=== PATIENT | female | born 1995 | race Caucasian/White ===

== ENCOUNTER 2019-11-30 07:46 | Outpatient (CLI) | payer BC ==
--- NOTE | 2019-12-01 13:20 | Ultrasound Report ---
Reason: DYSFUNCTIONAL UTERINE BLEEDING Procedure Date: 11/30/2019 Accession Number: [id number] / [id number] Procedure: US - Pelvic Complete CPT Code: Final Report FULL RESULT: EXAM: PELVIC ULTRASOUND EXAM DATE: 11/30/2019 09:01 AM. CLINICAL HISTORY: Dysfunctional uterine bleeding. COMPARISON: None. TECHNIQUE: Realtime transabdominal pelvic scan performed to identify the uterus and adnexa and as an overview of other pelvic structures, followed by transvaginal scan to provide greater detail of the uterus and adnexa, with static image documentation. FINDINGS: Uterus: 8.4 x 3.3 x 6.0 cm, volume 87 cc. Anteverted position. Normal overall size and echotexture. Masses: None. Endometrium: Septated uterus. Right moiety endometrial stripe 3 mm, left moiety endometrial stripe 2 mm. No free fluid. Cervix: Unremarkable. Right Ovary: 2.9 x 1.5 x 2.6 cm, volume 6 cc. Normal echotexture and blood flow. Left Ovary: 4.3 x 1.5 x 2.0 cm, volume 7 cc. Normal echotexture and blood flow. Free Fluid: Small amount of free fluid in the posterior cul-de-sac. Other: None. IMPRESSION: Septated uterus. No free fluid within either endometrial canal moiety. No uterine fibroids identified. RADIA
== END 2019-11-30 07:47 | disposition home or self-care (01) ==
LOC: DI 07:46
PROVIDERS: ATTEND Advanced Practice Midwife
DX: N93.8 Other specified abnormal uterine and vaginal bleeding (principal); Q51.20 Other doubling of uterus, unspecified
CPT/HCPCS: 76856

== ENCOUNTER 2021-03-21 08:00 | Outpatient (CLI) | payer BC ==
--- NOTE | 2021-03-21 14:50 | XRAY Report ---
PROCEDURE: Chest 2 View X-Ray INDICATIONS: Chest pain, shortness of breath TECHNIQUE: 2 view(s) of the chest. COMPARISON: None. FINDINGS: Surgical changes and devices: None. Lungs and pleura: No pleural effusions or pneumothorax. Lungs are clear. Mediastinum: Mediastinal contours are normal. Heart size is normal. Bones and chest wall: No suspicious bony abnormalities. Soft tissues appear unremarkable. IMPRESSION: No acute finding. Reviewed by: Edvin Bell MD on 03/21/2021 2:49 PM PDT Approved by: Edvin Bell MD on 03/21/2021 2:49 PM PDT Station ID: [id number]
== END 2021-03-21 23:59 | disposition home or self-care (01) ==
LOC: DI.S 08:00
PROVIDERS: ATTEND Physician Assistant Medical
DX: R06.02 Shortness of breath (principal); R07.9 Chest pain, unspecified

== ENCOUNTER 2022-06-09 08:00 | Outpatient (CLI) | payer BC, OTHER ==
--- NOTE | 2022-06-09 11:59 | XRAY Report ---
PROCEDURE: Wrist 4 View LT INDICATIONS: PAIN IN LEFT WRIST TECHNIQUE: 4 views of the wrist were acquired. COMPARISON: None FINDINGS: Bones: No acute fractures or dislocations. No suspicious bony lesions. Scaphoid view: Intact scaphoid Soft tissues: No suspicious soft tissue calcifications. IMPRESSION: No acute osseous abnormality. If symptoms persist or there is continued clinical concern, further meri luation with MRI or CT may be helpful. Reviewed by: Paxton Pollock MD on 06/09/2022 11:58 AM PDT Approved by: Paxton Pollock MD on 06/09/2022 11:58 AM PDT Station ID: [id number]
== END 2022-06-09 23:59 | disposition home or self-care (01) ==
LOC: DI.S 08:00
PROVIDERS: ATTEND Physician Assistant
DX: M25.532 Pain in left wrist (principal)

== ENCOUNTER 2022-06-17 20:58 | Emergency (ER) | payer BC ==
--- OUTSIDE RECORDS SUMMARY | 2022-06-17 21:08 | EXTERNAL MEDICAL SUMMARY RPT | Continuity of Care Document ---
:1995 Author Organization [facility] Address [address] [place] [address] Phone Care Team Providers Name Role Phone Unavailable Unavailable Unavailable [facility] Unavailable Unavailable Allergies No information. Encounters No information. Functional Status No information. Immunizations No information. Medications date description facility [phone] buspirone Walk[facility] [place] [phone]+0000 escitalopram oxalate Walk-In Clinic [facility] [place] [phone]+0000 buspirone [facility] [phone]+0000 codeine-guaifenesin Walk[facility] [place] [phone]+0000 escitalopram oxalate Walk-In Clinic [facility] [phone]+0000 codeine-guaifenesin [facility] [phone]+0000 albuterol sulfate [facility] [phone]+0000 albuterol sulfate [facility] [phone]+0000 codeine-guaifenesin [facility] [phone]+0000 buspirone [facility] [phone]+0000 escitalopram oxalate Walk[facility]In [facility] [phone]+0000 albuterol sulfate [facility] [phone]+0000 albuterol sulfate [facility] [place] [phone]+0000 escitalopram oxalate Walk[facility]In [facility] [place] [phone]+0000 buspirone [facility] [place] Problems No information. Procedures date description facility +0000 Visit Code Hold [facility] Results/Labs No information. Social History date description facility +0000 Never smoker Walk-[facility] [place] Vital Signs date measurement value units +0000 BMI BMI 18.37 kg/m2 +0000 BP_diastolic BP_diastolic 71 mmHg +0000 BP_systolic BP_systolic 110 mmHg +0000 heart_rate heart_rate 60 /min +0000 height_metric height_metric 165.1 cm +0000 height_standard height_standard 65 in +0000 respiration_rate respiration_rate 14 /min +0000 weight_metric weight_metric 49.9 kg +0000 weight_standard weight_standard 110 lb
[2022-06-17 21:15] VITALS: BP 129/81
[2022-06-17] MEDS ORDERED: ONDANSETRON ODT 4 MG TABLET TL STA (21:23)
[2022-06-17] MEDS ORDERED: ONDANSETRON ODT 4 MG Prepack 2 TL STA (21:23)
[2022-06-17] MEDS ORDERED: IBUPROFEN 600 MG TABLET PO STA (21:23)
[2022-06-17] MEDS ORDERED: BENZONATATE 100 MG CAPSULE PO STA (21:23)
--- NOTE | 2022-06-17 21:25 | ED Physician Documentation ---
PD HPI HEENT - Stated complaint Stated Complaint: COUGH/COLD SYMPTOM - Chief complaint Chief Complaint: Resp - History obtained from History obtained from: Patient - Additional information Additional information: Previously healthy 27-year-old has been sick for about 6 days. It started with a sore throat and also has congestion and cough with emesis starting more recently over the last couple of days not associated with diarrhea or abdominal pain. Multiple sick contacts at home and at work. Review of Systems Constitutional: reports: Fatigue. denies: Fever, Chills Nose: reports: Rhinorrhea / runny nose Throat: reports: Sore throat Respiratory: reports: Cough. denies: Dyspnea PD PAST MEDICAL HISTORY - Present Medications Home Medications: Ambulatory Orders Medication Instructions Recorded Confirmed Benzonatate [Tessalon] 200 mg PO QID PRN #20 cap 06/17/22 Ibuprofen [Motrin] 600 mg PO Q6H PRN #14 tab 06/17/22 Ondansetron Odt [Zofran] 4 mg TL Q6H PRN #10 tablet 06/17/22 - Allergies Allergies/Adverse Reactions: Allergies Allergy/AdvReac Type Severity Reaction Status Date / Time amoxicillin Allergy Rash Verified 06/17/22 21:15 PD ED PE NORMAL - Vitals Vital signs reviewed: Yes - General General: Alert and oriented X 3, No acute distress - HEENT HEENT: PERRL, EOMI, Other (Red tonsillar pillars without exudate) - Neck Neck: Other (Moderate anterior cervical adenopathy.) - Cardiac Cardiac: RRR, No murmur - Respiratory Respiratory: No respiratory distress, Clear bilaterally - Abdomen Abdomen: Soft, Non tender - Back Back: No CVA TTP, No spinal TTP - Derm Derm: Normal color, Warm and dry - Extremities Extremities: No edema, No calf tenderness / cord - Neuro Neuro: Alert and oriented X 3, Normal speech Results - Vitals Vitals: Vital Signs - 24 hr 06/17/22 21:13 Temperature 36.8 C Heart Rate 71 Respiratory 16 Rate Blood Pressure 129/81 H O2 Saturation 97 Oxygen O2 Source Room air PD MEDICAL DECISION MAKING - ED course ED course: 27-year-old woman with viral syndrome marked by cough, sore throat and vomiting with normal vital signs and relatively unremarkable exam save for red tonsillar pillars. She requested COVID testing which is not unreasonable. We will treat symptomatically. Discussed viral nature of her symptoms otherwise. Departure - Departure Disposition: Home, Self Care Clinical Impression: Viral URI Condition: Good Record reviewed to determine appropriate education?: Yes Instructions: ED Viral Syndrome Prescriptions: Ibuprofen [Motrin] 600 mg PO Q6H PRN #14 tab PRN Reason: Pain Benzonatate [Tessalon] 200 mg PO QID PRN #20 cap PRN Reason: Cough Ondansetron Odt [Zofran] 4 mg TL Q6H PRN #10 tablet PRN Reason: Nausea / Vomiting Comments: I sent your prescription electronically to [facility] in [place]. Return for new or worsening symptoms, follow-up with your doctor Wednesday or Wednesday if not improving. You have a Covid test pending. You need to self quarantine until the result is done and negative. Do not leave your house. Do not get near anybody. The results should be done in 48 to 72 hours. We will call with a positive result, the fastest way to get a negative result for confirmation though is to go to the hospital website at [email or web address], click on the my [email or web address] tab and sign up for the patient portal.
== END 2022-06-17 21:45 | disposition home or self-care (01) ==
LOC: ED 20:58
DX: J06.9 Acute upper respiratory infection, unspecified (principal); Z20.822 Contact with and (suspected) exposure to COVID-19
CPT/HCPCS: 87635; 99282; 99283; A9270; Q0162

== ENCOUNTER 2022-06-24 08:00 | Outpatient (CLI) | payer BC ==
--- NOTE | 2022-06-24 09:49 | XRAY Report ---
PROCEDURE: Wrist 4 View LT INDICATIONS: LEFT WRIST TENDINITIS TECHNIQUE: 4 views of the wrist were acquired. COMPARISON: 06/09/2020 FINDINGS: Bones: No displaced fracture. Normal carpal alignment. No high-grade degenerative changes. Soft tissues: No suspicious calcifications. IMPRESSION: No acute radiographic abnormality. Given persistent pain, consider MR for further evaluation. Reviewed by: Gabino Almazan MD on 06/24/2022 9:48 AM PDT Approved by: Gabino Almazan MD on 06/24/2022 9:48 AM PDT Station ID: [id number]
== END 2022-06-24 23:59 | disposition home or self-care (01) ==
LOC: DI.S 08:00
PROVIDERS: ATTEND Physician Assistant Medical
DX: M77.8 Other enthesopathies, not elsewhere classified (principal); M25.532 Pain in left wrist

== ENCOUNTER 2022-07-06 06:55 | Outpatient (CLI) | payer BC ==
[2022-07-06 14:25] LABS: BASOPHILS % (AUTO) 0.5 %; HCT - HEMATOCRIT 41.6 % (37.0-47.0); LYMPHOCYTES # (AUTO) 1.4 10^3/uL (1.5-3.5); MEAN CORPUSCULAR HEMOGLOBIN 29.3 pg (27.0-31.0); MEAN CORPUSCULAR HGB CONC 31.3 g/dL (32.0-36.0); MEAN CORPUSCULAR VOLUME 93.9 fL (81.0-99.0); MEAN PLATELET VOLUME 11.6 fL (7.9-10.8); MONOCYTES # (AUTO) 0.4 10^3/uL (0.0-1.0); MONOCYTES % (AUTO) 8.9 %; NEUTROPHILS # (AUTO) 2.3 10^3/uL (1.5-6.6); NEUTROPHILS % (AUTO) 55.4 %; PLT - PLATELET COUNT 234 10^3/uL (130-450); RED BLOOD COUNT 4.43 10^6/uL (4.20-5.40); RED CELL DISTRIBUTION WIDTH 12.1 % (12.0-15.0); WHITE BLOOD COUNT 4.2 x10^3/uL (4.8-10.8)
[2022-07-06 15:40] LABS: THYROID STIMULATING HORMONE 2.53 uIU/mL (0.34-5.60)
== END 2022-07-06 06:56 | disposition home or self-care (01) ==
LOC: LAB.S 06:55
PROVIDERS: ATTEND Physician Assistant
DX: R53.83 Other fatigue (principal)
CPT/HCPCS: 36415; 84443; 85025

== ENCOUNTER 2022-07-22 08:00 | Outpatient (CLI) | payer BC ==
[2022-07-23 00:59] LABS: INFLUENZA A- RESP PCR PANEL NOT DETECTED; INFLUENZA B - RESP PCR PANEL NOT DETECTED; RSV- RESP PCR PANEL NOT DETECTED; SARS-CoV-2 -RESP PCR PANEL NOT DETECTED
== END 2022-07-22 23:59 | disposition home or self-care (01) ==
LOC: LAB 08:00
PROVIDERS: ATTEND Registered Nurse
DX: J02.9 Acute pharyngitis, unspecified (principal); J34.89 Other specified disorders of nose and nasal sinuses; R05.1 Acute cough; Z20.822 Contact with and (suspected) exposure to COVID-19
CPT/HCPCS: 87637

== ENCOUNTER 2022-08-07 07:00 | Outpatient (CLI) | payer BC | END 2022-08-07 23:59 | disposition home or self-care (01) | LOC: LAB.S 07:00 | PROVIDERS: ATTEND Physician Assistant | DX: M77.9 Enthesopathy, unspecified (principal) | CPT/HCPCS: 36415; 85651 ==

== ENCOUNTER 2022-10-29 16:22 | Outpatient (CLI) | payer BC ==
[2022-10-29 16:51] VITALS: BP 128/72
--- NOTE | 2022-10-29 16:51 | SLEEP CARE CONSULTATION ---
Information from patient questionnaire entered by Stephany Jacob. I have reviewed and concur with the information entered by Stephany Jacob. This document represents the service I personally performed and the decisions made by me, Nat Valdovinos ARNP. History of Present Illness Service Date and Time: 10/29/2022 1622 Reason for Visit: New patient, Previously diagnosed sleep apnea Chief Complaint: reports: Snoring, Excessive daytime sleepiness, Other (nerve pain) Date of Onset: 4+ months Usual bedtime: 10 PM Time it takes to fall asleep: 1/2 hour Snores at night: Yes Observed to quit breathing while asleep: No Number of times waking at night: 2 Reasons for waking at night: reports: Bathroom, Other (unknown reason; coughing attacks since being sick recently). denies: Choking, Snoring, Gasping for air Toss, Turn, or Twitch while sleeping: Yes Recalls having dreams: Yes Usually gets out of bed at: 6-9 AM Feels refreshed in the morning: No Morning headache: No Sleepy or fatigued during the day: Yes Ever fallen asleep while driving: No (does not drive, only has permit) Takes day naps: Yes (daily for at least 2-3 hours) Dreams during day naps: No Prior sleep studies: Yes Year and Where: 08/2018 [facility] Additional HPI information: I had the pleasure of seeing JOSE LYNCH today regarding the possibility of her having a sleep disorder. Her current complaints are snoring and excessive daytime sleepiness. She has been experiencing nerve pain since May 2022 in her hands and legs/feet. He doctor referred her to get her apnea recheck. She has a history diagnosed sleep apnea and was prescribed a CPAP but she has not been using it in about 09/2018. She states she would take the mask off during the night and then she just stopped using it. She has also tried an oral appliance but it hurt her teeth too much to continue. She has had about 5-10 pound gain since her last sleep study. She states her daytime sleepiness is worse, she will come home from work and fall asleep for 3-4 hours. 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 Patient is Single and lives in [place]. Have you smoked in the past 12 months: No Alcohol use: No Caffeine use: Yes Caffeine amount and frequency: 2 cans every day, 24 ounce coffee in morning Family History Family history of sleep disordered breathing: Yes Family Hx Sleep Apnea: Father: Snoring, Sleep apnea - Untreated Allergies and Home Medications Known drug allergies: Yes (amoxicillin) Drug allergies reviewed: Yes Home medication list reviewed: Yes Allergy and home medication list: Medications: Noa ( control) Escitalopram, 20 mg Iron Multivitamin gummies Buspirone 5 mg Meloxicam 15 mg Nexplanon implant in left arm Gabapentin 100 mg 3 times a day Review of Systems Weight gain over past 5 years: 10 Cardiovascular: denies: high blood pressure Gastrointestinal: denies: heartburn Neurological: reports: headaches Psychiatric: reports: anxiety, depression Ear/Nose/Throat: reports: nasal congestion, wisdom teeth removed. denies: tonsillectomy Endocrine: reports: sluggishness Musculoskeletal: reports: joint pain, neck pain, back pain Physical Exam Vital signs obtained and entered by: STEPHANY Christiansen MA Blood Pressure: 128/72 (LEFT ARM) Cuff size: regular Heart Rate: 58 O2 Saturation: 8 Height: 5 ft 5 in Weight: 117 lb 6.4 oz Body Mass Index: 19.5 BMI Classification: Normal Neck circumference: 13.5 Mouth and throat: narrow oropharynx Soft palate: long Hard palate: arched Uvula: normal Uvula visualization: 50% Mallampati Class II Tongue: normal in size Tonsils: small Neck: normal w/o lymphadenopathy or thyromegaly Heart: regular rate and rhythm Lungs: clear bilaterally Impression and Plan 1. Suspected Obstructive Sleep Apnea-Hypopnea Syndrome, as previously diagnosed and as suggested by a history of loud and irregular snoring, unrefreshed sleep, and excessive daytime sleepiness. I recommend proceeding to polysomnography to confirm the diagnosis and to assess severity. I informed the patient of what the sleep studies involve and after some discussion, obtained agreement to proceed. The pathophysiology of obstructive sleep apnea-hypopnea syndrome was discussed with the patient and health risks of cardiovascular and cerebrovascular disease if not treated. Risks of drowsy driving discussed in detail and patient advised to avoid long distance driving and to gizzard puller at the first sign of drowsiness. Patient agreed to plan. * Schedule polysomnography * Avoid long distance driving or driving when feeling sleepy. * Avoid alcohol, sedative and muscle relaxant around bedtime. * Review instructions provided by trained office staff on how to prepare for the sleep study. * Return for follow-up after sleep study completed. Visit Type: In Office Time Spent with Patient (minutes): 22 Provider Statement: I spent 100% of the Face to Face Visit with the patient with greater than 50% spent counseling the patient and coordination of care.
== END 2022-10-29 16:23 | disposition home or self-care (01) ==
LOC: SC 16:22
PROVIDERS: ATTEND Nurse Practitioner Family
DX: G47.33 Obstructive sleep apnea (adult) (pediatric) (principal); F32.A Depression, unspecified
CPT/HCPCS: 99202; 99212

== ENCOUNTER 2022-11-02 11:16 | Outpatient (CLI) | payer BC ==
[2022-11-02 14:51] LABS: ALBUMIN 3.9 g/dL (3.2-5.5); ALBUMIN/GLOBULIN RATIO 1.1 (1.0-2.2); BILIRUBIN,TOTAL 0.4 mg/dL (0.2-1.0); CALCIUM 9.4 mg/dL (8.5-10.3); CREATININE 0.7 mg/dL (0.4-1.0); POTASSIUM 4.1 mmol/L (3.5-5.0); TOTAL PROTEIN 7.3 g/dL (6.7-8.2)
[2022-11-02 17:02] LABS: FOLATE > 49.60 ng/mL (5.90 - >24.8)
[2022-11-02 20:44] LABS: ESTIMATED AVERAGE GLUCOSE 105 mg/dL (70-100); HEMOGLOBIN A1c% 5.3 % (4.27-6.07)
== END 2022-11-02 11:17 | disposition home or self-care (01) ==
LOC: LAB.S 11:16
PROVIDERS: ATTEND Registered Nurse
DX: G62.9 Polyneuropathy, unspecified (principal)
CPT/HCPCS: 36415; 80053; 82607; 82746; 83036; 84207

== ENCOUNTER 2023-01-21 06:58 | Outpatient (CLI) | payer BC ==
[2023-01-21 16:23] LABS: FOLATE > 49.60 ng/mL (5.90 - >24.8)
== END 2023-01-21 06:59 | disposition home or self-care (01) ==
LOC: LAB.S 06:58
PROVIDERS: ATTEND Registered Nurse
DX: E53.8 Deficiency of other specified B group vitamins (principal)
CPT/HCPCS: 36415; 82607; 82746

== ENCOUNTER 2023-02-24 13:52 | Outpatient (CLI) | payer BC ==
--- NOTE | 2023-02-24 18:44 | XRAY Report ---
PROCEDURE: Chest 2 View X-Ray INDICATIONS: SHORTNESS OF BREATH/CHEST PAIN TECHNIQUE: 2 views of the chest were acquired. COMPARISON: None. FINDINGS: Surgical changes and devices: None. Lungs and pleura: No pleural effusions or pneumothorax. Lungs are clear. Mediastinum: Mediastinal contours appear normal. Heart size is normal. Bones and chest wall: No suspicious bony lesions. Overlying soft tissues appear unremarkable. IMPRESSION: No acute cardiopulmonary process. Reviewed by: Tevin Robb MD on 02/24/2023 5:42 PM AKNATHAN Approved by: Tevin Robb MD on 02/24/2023 5:42 PM AKDT Station ID: [id number]
== END 2023-02-24 23:59 | disposition home or self-care (01) ==
LOC: DI.S 13:52
PROVIDERS: ATTEND Physician Assistant
DX: R07.89 Other chest pain (principal); R06.02 Shortness of breath

== ENCOUNTER 2023-03-04 08:00 | Outpatient (CLI) | payer BC | END 2023-03-04 23:59 | disposition home or self-care (01) | LOC: LAB.S 08:00 | PROVIDERS: ATTEND Physician Assistant | DX: R30.0 Dysuria (principal) | CPT/HCPCS: 87086 ==

== ENCOUNTER 2023-04-12 08:00 | Outpatient (CLI) | payer BC | END 2023-04-12 23:59 | disposition home or self-care (01) | LOC: LAB.S 08:00 | PROVIDERS: ATTEND Physician Assistant Medical | DX: R30.0 Dysuria (principal) | CPT/HCPCS: 87086 ==

== ENCOUNTER 2023-04-14 08:00 | Outpatient (CLI) | payer BC | END 2023-04-14 23:59 | disposition home or self-care (01) | LOC: LAB.S 08:00 | PROVIDERS: ATTEND Physician Assistant | DX: R30.0 Dysuria (principal) | CPT/HCPCS: 87086 ==

== ENCOUNTER 2023-05-27 08:00 | Outpatient (CLI) | payer BC ==
[2023-05-27 19:56] LABS: BILIRUBIN,URINE NEGATIVE (NEGATIVE); GLUCOSE, URINE (UA) NEGATIVE (NEGATIVE); KETONES,URINE (UA) NEGATIVE (NEGATIVE); LEUKOCYTE ESTERASE, URINE SMALL (NEGATIVE); NITRITE,URINE NEGATIVE (NEGATIVE); OCCULT BLOOD,URINE NEGATIVE (NEGATIVE); PROTEIN,URINE NEGATIVE (NEGATIVE); UROBILINOGEN,URINE 0.2 (NORMAL) E.U./dL (NORMAL)
[2023-05-27 20:00] LABS: CLARITY,URINE CLEAR (CLEAR)
[2023-05-27 20:08] LABS: BACTERIA,URINE Moderate /HPF (None Seen); RBC,URINE 0-5 /HPF (0-5); SQUAMOUS EPITHELIAL CELL,UR RARE Squamous (<= Few); WBC,URINE 0-3 /HPF (0-5)
== END 2023-05-27 23:59 | disposition home or self-care (01) ==
LOC: LAB 08:00
PROVIDERS: ATTEND Physician Assistant Medical
DX: R30.0 Dysuria (principal)
CPT/HCPCS: 81001; 87086

== ENCOUNTER 2023-05-28 11:33 | Outpatient (CLI) | payer BC ==
[2023-05-28 15:15] LABS: RHEUMATOID FACTOR NEGATIVE (Negative)
[2023-05-28 16:47] LABS: CRP - C-REACTIVE PROTEIN < 0.5 mg/dL (<0.5)
[2023-05-31 17:09] LABS: ANTINUCLEAR ANTIBODIES IFA Negative (.)
== END 2023-05-28 11:34 | disposition home or self-care (01) ==
LOC: LAB.S 11:33
PROVIDERS: ATTEND Physician Assistant Medical
DX: M25.50 Pain in unspecified joint (principal); M79.10 Myalgia, unspecified site; M54.9 Dorsalgia, unspecified
CPT/HCPCS: 36415; 82746; 85651; 86038; 86140; 86430

== ENCOUNTER 2023-06-10 07:37 | Outpatient (CLI) | payer BC | END 2023-06-10 07:38 | disposition home or self-care (01) | LOC: LAB.S 07:37 | PROVIDERS: ATTEND Registered Nurse | DX: E53.8 Deficiency of other specified B group vitamins (principal) | CPT/HCPCS: 36415; 82607; 82746 ==

== ENCOUNTER 2023-08-14 11:04 | Emergency (ER) | payer BC ==
[2023-08-14 11:48] LABS: HCT - HEMATOCRIT 44.7 % (37.0-47.0); HGB - HEMOGLOBIN 14.5 g/dL (12.0-16.0); LYMPHOCYTES # (AUTO) 1.8 10^3/uL (1.5-3.5); LYMPHOCYTES % (AUTO) 27.8 %; MEAN CORPUSCULAR HEMOGLOBIN 28.7 pg (27.0-31.0); MEAN CORPUSCULAR HGB CONC 32.4 g/dL (32.0-36.0); MEAN CORPUSCULAR VOLUME 88.3 fL (81.0-99.0); MEAN PLATELET VOLUME 9.9 fL (7.9-10.8); MONOCYTES # (AUTO) 0.3 10^3/uL (0.0-1.0); MONOCYTES % (AUTO) 5.1 %; NEUTROPHILS # (AUTO) 4.4 10^3/uL (1.5-6.6); NEUTROPHILS % (AUTO) 66.6 %; PLT - PLATELET COUNT 284 10^3/uL (130-450); RED BLOOD COUNT 5.06 10^6/uL (4.20-5.40); WHITE BLOOD COUNT 6.6 x10^3/uL (4.8-10.8)
[2023-08-14 12:01] LABS: ALBUMIN 4.7 g/dL (3.2-5.5); ALBUMIN/GLOBULIN RATIO 1.4 (1.0-2.2); BILIRUBIN,TOTAL 0.4 mg/dL (0.2-1.0); CALCIUM 10.1 mg/dL (8.5-10.3); CREATININE 0.8 mg/dL (0.6-1.3); POTASSIUM 3.3 mmol/L (3.5-4.5)
[2023-08-14] MEDS ORDERED: SODIUM CHLORIDE 0.9% 1,000 ML IV STA (14:26)
[2023-08-14] MEDS ORDERED: ONDANSETRON 4 MG/2 ML VIAL IVP STA (14:26)
[2023-08-14 15:51] LABS: HCG,QUALITATIVE BLOOD NEGATIVE
[2023-08-14 16:20] LABS: BILIRUBIN,URINE NEGATIVE (NEGATIVE); GLUCOSE, URINE (UA) NEGATIVE (NEGATIVE); KETONES,URINE (UA) 15 mg/dL (NEGATIVE); LEUKOCYTE ESTERASE, URINE MODERATE (NEGATIVE); NITRITE,URINE NEGATIVE (NEGATIVE); OCCULT BLOOD,URINE NEGATIVE (NEGATIVE); PROTEIN,URINE NEGATIVE (NEGATIVE); UROBILINOGEN,URINE 0.2 (NORMAL) E.U./dL (NORMAL)
[2023-08-14 16:22] LABS: CLARITY,URINE SL. CLOUDY (CLEAR)
--- NOTE | 2023-08-14 16:27 | ED Physician Documentation ---
PD HPI NVD - Stated complaint Stated Complaint: C+,N/V,WEAKNESS - Chief complaint Chief Complaint: Abd Pain - History obtained from History obtained from: Patient - Additonal information Additional information: Patient is a 28-year-old female with no significant prior medical history presenting for evaluation of nausea and vomiting for the past 3 days. Patient states that she started having cough, congestion and runny nose on Wednesday and tested positive for COVID on Wednesday. Reports going in to the walk-in clinic and was given a prescription for prednisone "for COVID". Denies bronchitis or asthma . Patient has not been taking the prednisone. URI symptoms have gotten better but the following day on Wednesday she started having nausea and vomiting and has not been able to keep anything down. No diarrhea. No abdominal pain. Denies any known sick contacts with similar GI symptoms but other family members do have RSV. Denies concern for . No dysuria or hematuria. Review of Systems Constitutional: denies: Fever Cardiac: denies: Chest pain / pressure Respiratory: denies: Dyspnea GI: reports: Nausea, Vomiting. denies: Abdominal Pain, Diarrhea : denies: Dysuria PD PAST MEDICAL HISTORY - Past Medical History Psych: Depression, Anxiety - Past Surgical History Past Surgical History: Yes HEENT: Other - Present Medications Home Medications: Ambulatory Orders Medication Instructions Recorded Confirmed Benzonatate [Tessalon] 200 mg PO QID PRN #20 cap 06/17/22 Escitalopram [Lexapro] 20 mg PO DAILY 06/17/22 06/17/22 Etonogestrel [Nexplanon] 68 mg SQ 06/17/22 06/17/22 Ibuprofen [Motrin] 600 mg PO Q6H PRN #14 tab 06/17/22 Norethindrone-E.estradiol-Iron 1 each PO DAILY 06/17/22 06/17/22 [Noa 24 Fe 1 mg-20 Mcg Tablet] Ondansetron Odt [Zofran] 4 mg TL Q6H PRN #10 tablet 06/17/22 busPIRone [Buspar] 5 mg ORAL DAILY 06/17/22 06/17/22 Ondansetron Odt [Zofran] 4 mg TL Q6H PRN #10 tablet 08/14/23 - Allergies Allergies/Adverse Reactions: Allergies Allergy/AdvReac Type Severity Reaction Status Date / Time amoxicillin Allergy Rash Verified 06/17/22 21:15 - Social History Does the pt smoke?: No Smoking Status: Never smoker Does the pt drink ETOH?: No Does the pt have substance abuse?: No - Immunizations Immunizations are current?: Yes Results - Vitals Vitals: Vital Signs - 24 hr 08/14/23 08/14/23 08/14/23 11:28 13:29 15:00 Temperature 36.1 C L 36.5 C 36.5 C Heart Rate 85 86 84 Respiratory 18 16 16 Rate Blood Pressure 120/82 H 122/80 124/80 O2 Saturation 99 100 100 08/14/23 16:33 Temperature Heart Rate 80 Respiratory 16 Rate Blood Pressure 128/78 O2 Saturation 99 Oxygen O2 Source Room air - Labs Labs: Laboratory Tests 08/14/23 08/14/23 08/14/23 11:40 11:40 11:42 WBC 6.6 RBC 5.06 Hgb 14.5 Hct 44.7 MCV 88.3 MCH 28.7 MCHC 32.4 RDW 12.0 Plt Count 284 MPV 9.9 Neut # (Auto) 4.4 Lymph # (Auto) 1.8 [place] # (Auto) 0.3 Eos # (Auto) 0.0 Baso # (Auto) 0.0 Absolute Nucleated RBC 0.00 Nucleated RBC % 0.0 Sodium 139 Potassium 3.3 L Chloride 103 Carbon Dioxide 27 Anion Gap 9.0 BUN 15 Creatinine 0.8 Estimated GFR (MDRD) 85 L Glucose 98 Calcium 10.1 Total Bilirubin 0.4 AST 36 ALT 74 H Alkaline Phosphatase 63 Total Protein 8.0 Albumin 4.7 Globulin 3.3 Albumin/Globulin Ratio 1.4 Lipase 19 Serum HCG, Qual NEGATIVE Urine Color Urine Clarity Urine pH Ur Specific [employer] Urine Protein Urine Glucose (UA) Urine Ketones Urine Occult Blood Urine Nitrite Urine Bilirubin Urine Urobilinogen Ur Leukocyte Esterase Urine RBC Urine WBC Ur Squamous Epith Cells Amorphous Sediment Urine Bacteria Urine Mucus Ur Microscopic Review Urine Culture Comments 08/14/23 16:08 WBC RBC Hgb Hct MCV MCH MCHC RDW Plt Count MPV Neut # (Auto) Lymph # (Auto) [place] # (Auto) Eos # (Auto) Baso # (Auto) Absolute Nucleated RBC Nucleated RBC % Sodium Potassium Chloride Carbon Dioxide Anion Gap BUN Creatinine Estimated GFR (MDRD) Glucose Calcium Total Bilirubin AST ALT Alkaline Phosphatase Total Protein Albumin Globulin Albumin/Globulin Ratio Lipase Serum HCG, Qual Urine Color YELLOW Urine Clarity SL. CLOUDY Urine pH 6.0 Ur Specific [employer] 1.025 Urine Protein NEGATIVE Urine Glucose (UA) NEGATIVE Urine Ketones 15 H Urine Occult Blood NEGATIVE Urine Nitrite NEGATIVE Urine Bilirubin NEGATIVE Urine Urobilinogen 0.2 (NORMAL) Ur Leukocyte Esterase MODERATE H Urine RBC 0-5 Urine WBC 6-10 H Ur Squamous Epith Cells MOD Squamous H Amorphous Sediment Moderate Urine Bacteria Many H Urine Mucus Marked Strands Ur Microscopic Review INDICATED Urine Culture Comments NOT INDICATED PD Medical Decision Making - ED course Complexity details: reviewed results, re-evaluated patient, d/w patient ED course: Patient is a 28-year-old female presenting for evaluation of nausea and vomiting For the past several days. Earlier in the week she did test positive for COVID when she was having symptoms with cough and congestion and runny nose. But thos e symptoms have improved. Her abdominal exam is benign. CBC, chemistries are largely unremarkable. Potassium is 3.3 but she is tolerating p.o. after IV fluids and Zofran. Urinalysis is Reviewed and she does not have symptoms to suggest UTI. Departure - Departure Disposition: 01 Home, Self Care Clinical Impression: Nausea & vomiting Condition: Stable Instructions: ED Nausea Vomiting Prescriptions: Ondansetron Odt [Zofran] 4 mg TL Q6H PRN #10 tablet PRN Reason: Nausea / Vomiting Comments: [facility] [place] I would start with a clear liquid or a bland diet and advance as you are able to tolerate. Return to the ER with any worsening symptoms. Forms: PCP List Discharge Date/Time: 08/14/23 16:34
[2023-08-14 16:32] LABS: AMORPHOUS SEDIMENT,UR Moderate /LPF; BACTERIA,URINE Many /HPF (None Seen); MUCUS,URINE Marked Strands; RBC,URINE 0-5 /HPF (0-5); SQUAMOUS EPITHELIAL CELL,UR MOD Squamous (<= Few)
[2023-08-14 16:40] VITALS: BP 128/78; O2SAT 99
== END 2023-08-14 16:34 | disposition home or self-care (01) ==
LOC: ED 11:04
DX: R11.2 Nausea with vomiting, unspecified (principal)
CPT/HCPCS: 36415; 80053; 81001; 81003; 83690; 84703; 85025; 87086; 96374; 99283

== ENCOUNTER 2023-10-06 07:00 | Outpatient (CLI) | payer BC | END 2023-10-06 23:59 | disposition home or self-care (01) | LOC: LAB.S 07:00 | PROVIDERS: ATTEND Emergency Medicine | DX: J06.9 Acute upper respiratory infection, unspecified (principal) | CPT/HCPCS: 87070 ==

== ENCOUNTER 2023-11-05 09:57 | Outpatient (CLI) | payer BC ==
[2023-11-05 15:15] LABS: BASOPHILS % (AUTO) 0.2 %; EOSINOPHILS % (AUTO) 0.7 %; HCT - HEMATOCRIT 42.2 % (37.0-47.0); HGB - HEMOGLOBIN 13.6 g/dL (12.0-16.0); LYMPHOCYTES # (AUTO) 1.6 10^3/uL (1.5-3.5); LYMPHOCYTES % (AUTO) 28.6 %; MEAN CORPUSCULAR HEMOGLOBIN 29.1 pg (27.0-31.0); MEAN CORPUSCULAR HGB CONC 32.2 g/dL (32.0-36.0); MEAN CORPUSCULAR VOLUME 90.4 fL (81.0-99.0); MEAN PLATELET VOLUME 10.2 fL (7.9-10.8); MONOCYTES # (AUTO) 0.5 10^3/uL (0.0-1.0); MONOCYTES % (AUTO) 8.9 %; NEUTROPHILS # (AUTO) 3.4 10^3/uL (1.5-6.6); NEUTROPHILS % (AUTO) 61.2 %; PLT - PLATELET COUNT 349 10^3/uL (130-450); RED BLOOD COUNT 4.67 10^6/uL (4.20-5.40); RED CELL DISTRIBUTION WIDTH 12.1 % (12.0-15.0); WHITE BLOOD COUNT 5.5 x10^3/uL (4.8-10.8)
[2023-11-05 15:58] LABS: ALBUMIN 4.3 g/dL (3.2-5.5); ALBUMIN/GLOBULIN RATIO 1.3 (1.0-2.2); BILIRUBIN,TOTAL 0.4 mg/dL (0.2-1.0); CALCIUM 10.4 mg/dL (8.5-10.3); CREATININE 0.8 mg/dL (0.6-1.3); TOTAL PROTEIN 7.5 g/dL (6.4-8.9)
[2023-11-05 16:14] LABS: THYROID STIMULATING HORMONE 1.98 uIU/mL (0.34-5.60)
== END 2023-11-05 09:58 | disposition home or self-care (01) ==
LOC: LAB.S 09:57
PROVIDERS: ATTEND Registered Nurse
DX: R41.3 Other amnesia (principal); G89.4 Chronic pain syndrome; R51.9 Headache, unspecified
CPT/HCPCS: 36415; 80053; 84443; 85025

== ENCOUNTER 2024-01-01 12:38 | Outpatient (CLI) | payer BC ==
--- NOTE | 2024-01-03 07:50 | MRI Report ---
PROCEDURE: Brain WO INDICATIONS: HEADACHE TECHNIQUE: Noncontrast axial T1 spin echo, axial T2 fast spin echo, sagittal and axial FLAIR, coronal T2 fast sp in echo, axial gradient echo, axial diffusion and ADC through the brain. COMPARISON: None. FINDINGS: Image quality: Excellent. CSF Spaces: Basal cisterns are patent. No extra-axial fluid collections. Ventricles are normal in size and shape. Brain: No intracranial masses or hemorrhage. [place]/white matter interface is normal. Brainstem appe ars normal. Diffusion-weighted images demonstrate no acute ischemic insult. No chronic ischemic ins ults. Normal intravascular flow voids are present. Skull and face: Calvarium has normal marrow signal. Orbits appear normal. Sinuses: Sinuses and mastoids are clear. IMPRESSION: MRI brain without acute intracranial abnormalities. No evidence for mass or mass effect. Reviewed by: Gadiel Bach MD on 01/03/2024 7:49 AM PDT Approved by: Gadiel Bach MD on 01/03/2024 7:49 AM PDT Station ID: [id number]
--- NOTE | 2024-01-03 18:46 | MRI Report ---
PROCEDURE: MR angiogram brain contrast INDICATIONS: HEADACHE TECHNIQUE: [id number] 3-D MR angiogram of the brain was obtained without contrast and 3-dimension al maximum intensity projection (MIP) volume rendering was constructed. COMPARISON: None. FINDINGS: Internal carotid arteries: No acute findings. Intracranial ICA are patent with no significant steno sis. No occlusion. No aneurysm. Anterior cerebral arteries: Unremarkable. No significant stenosis. No occlusion. No aneurysm. Middle cerebral arteries: Unremarkable. No significant stenosis. No occlusion. No aneurysm. Posterior cerebral arteries: Unremarkable. No significant stenosis. No occlusion. No aneurysm. Basilar artery: Unremarkable. No significant stenosis. No occlusion. No aneurysm. Vertebral arteries: Unremarkable as visualized. Other: Visualized portions of the brain unremarkable. IMPRESSION: Normal MR angiogram of the brain Reviewed by: Tevin Robb MD on 01/03/2024 5:45 PM TERRI Approved by: Tevin Robb MD on 01/03/2024 5:45 PM AKNATHAN Station ID: [id number]
== END 2024-01-01 12:39 | disposition home or self-care (01) ==
LOC: DI 12:38
PROVIDERS: ATTEND Psychiatry & Neurology Neurology
DX: G43.009 Migraine without aura, not intractable, without status migrainosus (principal)

== ENCOUNTER 2024-02-04 10:17 | Outpatient (CLI) | payer BC ==
[2024-02-04 15:45] LABS: BASOPHILS % (AUTO) 0.2 %; EOSINOPHILS % (AUTO) 0.9 %; HCT - HEMATOCRIT 41.3 % (37.0-47.0); HGB - HEMOGLOBIN 13.5 g/dL (12.0-16.0); LYMPHOCYTES # (AUTO) 1.7 10^3/uL (1.5-3.5); LYMPHOCYTES % (AUTO) 38.5 %; MEAN CORPUSCULAR HEMOGLOBIN 28.8 pg (27.0-31.0); MEAN CORPUSCULAR HGB CONC 32.7 g/dL (32.0-36.0); MEAN CORPUSCULAR VOLUME 88.2 fL (81.0-99.0); MEAN PLATELET VOLUME 11.6 fL (7.9-10.8); MONOCYTES # (AUTO) 0.4 10^3/uL (0.0-1.0); MONOCYTES % (AUTO) 8.7 %; NEUTROPHILS # (AUTO) 2.3 10^3/uL (1.5-6.6); NEUTROPHILS % (AUTO) 51.5 %; PLT - PLATELET COUNT 242 10^3/uL (130-450); RED BLOOD COUNT 4.68 10^6/uL (4.20-5.40); RED CELL DISTRIBUTION WIDTH 12.9 % (12.0-15.0); WHITE BLOOD COUNT 4.4 x10^3/uL (4.8-10.8)
[2024-02-04 16:16] LABS: ALBUMIN 4.4 g/dL (3.2-5.5); ALBUMIN/GLOBULIN RATIO 1.5 (1.0-2.2); BILIRUBIN,TOTAL 0.5 mg/dL (0.2-1.0); CALCIUM 9.9 mg/dL (8.5-10.3); CREATININE 0.8 mg/dL (0.6-1.3); POTASSIUM 4.1 mmol/L (3.5-4.5); TOTAL PROTEIN 7.3 g/dL (6.4-8.9)
== END 2024-02-04 10:18 | disposition home or self-care (01) ==
LOC: LAB.S 10:17
PROVIDERS: ATTEND Registered Nurse
DX: M25.50 Pain in unspecified joint (principal); R94.4 Abnormal results of kidney function studies; M79.10 Myalgia, unspecified site; M54.9 Dorsalgia, unspecified
CPT/HCPCS: 36415; 80053; 85025

== ENCOUNTER 2024-02-14 08:00 | Outpatient (CLI) | payer BC ==
--- NOTE | 2024-02-14 18:09 | XRAY Report ---
PROCEDURE: Ribs w/PA Chest 3+V LT INDICATIONS: LEFT SIDED RIB PAIN TECHNIQUE: 3 views of the ribs were acquired, along with a single view chest. COMPARISON: None. FINDINGS: Surgical changes and devices: None. Bones and chest wall: No fractures or dislocations. No suspicious bony lesions. Overlying soft tis sues appear unremarkable. Lungs and pleura: No pleural effusions or pneumothorax. Lungs appear clear. Mediastinum: Mediastinal contours appear normal. Heart size is normal. IMPRESSION: No visualized acute fracture or dislocation. However, occult injury cannot be excluded. Recommend mckenzie rt interval imaging follow-up in 7-10 days as clinically indicated for additional evaluation. Reviewed by: Silvina Sewell MD on 02/14/2024 6:08 PM PDT Approved by: Silvina Sewell MD on 02/14/2024 6:08 PM PDT Station ID: [id number]
== END 2024-02-14 23:59 | disposition home or self-care (01) ==
LOC: DI.S 08:00
PROVIDERS: ATTEND Physician Assistant Medical
DX: R07.81 Pleurodynia (principal)